=== PATIENT | male | born 1985 ===

== ENCOUNTER 2024-05-13 12:46 | Emergency (ER) | payer OTHER ==
[~2024-05-13] VITALS: Ht 170.2 cm; Wt 68.2 kg
[2024-05-13 12:52] VITALS: TEMP 98.4
[2024-05-13] MEDS: IBUPROFEN 800 MG TABLET PO ONE (15:24)
[2024-05-13 16:03] VITALS: BP 123/59; PULSE 70; RESP 18; O2SAT 97
== END 2024-05-13 16:05 | disposition home or self-care (01) ==
LOC: EMS 12:46
DX: S93.401A Sprain of unspecified ligament of right ankle, initial encounter (principal); Y08.89XA Assault by other specified means, initial encounter; Y93.89 Activity, other specified; Y92.89 Other specified places as the place of occurrence of the external cause; Y99.8 Other external cause status
CPT/HCPCS: 99284; 73610-TC; 73630-TC; Z7502; Z7610